=== PATIENT | female | born 1950 | race Caucasian/White ===

== ENCOUNTER 2017-02-27 10:34 | Emergency (ER) | payer MEDICARE, BC ==
--- NOTE | 2017-02-27 13:07 | RAD ---
INDICATION: Food stuck. COMPARISON: There are no prior studies available for comparison. TECHNIQUE: AP and lateral images of the soft tissue of the neck were obtained. FINDINGS: The epiglottis and aryepiglottic folds appear to be within normal limits. The retropharyngeal soft tissues appear normal. The airway appears patent. No radiopaque foreign body is seen. IMPRESSION: NO RADIOPAQUE FOREIGN BODY IS SEEN.
--- NOTE | 2017-02-27 13:08 | RAD ---
INDICATION: Foot stuck in esophagus. COMPARISON: There are no prior studies available for comparison. TECHNIQUE: Dual-energy PA and lateral views of the chest were obtained. FINDINGS: The heart is within normal limits in size. Mediastinal and hilar contours appear within normal limits. The lungs are hyperinflated and clear. No pleural effusion is seen. No radiopaque foreign body is seen. IMPRESSION: FINDINGS SUGGESTIVE OF COPD, NO EVIDENCE FOR ACUTE FINDING.
[2017-02-27] MEDS ORDERED: Glucagon* 1 MG VIAL IV ONE (14:15)
[2017-02-27 14:27] VITALS: BP 162/74
[2017-02-27] MEDS ORDERED: Midazolam* 1 MG/ML 10 ML VIAL (10 MG) ONE (16:13)
[2017-02-27] MEDS ORDERED: Meperidine SYRINGE* 50 MG/ML ONE (16:13)
--- NOTE | 2017-02-27 22:39 | ED ---
Duc Roberson Alok, scribed for Wing Perez MD on 02/27/17 at 1431 . Throat Pain/Nasal Congestion - HPI Summary HPI Summary: 66F presents to the ED for a foreign body she feels in her esophagus for the last 2 days. Pt states that 2 days ago she was eating chicken when she felt a big that was too big not go down her throat fully. Pt states she tried to wash it down with fluid with no improvement. Pt is able to drink but hasn't tried eating since 2 days ago besides a small amount of salad she mashed thorough and ingesting with water successfully. Pt states this has never happened before. Pt denies scratching in her throat and states she chicken did not contain cartilage. Pt denies SOB. - History of Current Complaint Chief Complaint: EDForeignBodyEsophag Time Seen by Provider: 02/27/17 14:12 Hx Obtained From: Patient Onset/Duration: Lasting Days, Still Present Severity: Moderate - Allergies/Home Medications Allergies/Adverse Reactions: Allergies Allergy/AdvReac Type Severity Reaction Status Date / Time No Known Allergies Allergy Verified 02/27/17 14:49 Home Medications: Home Medications NK [No Home Medications Reported] 02/27/17 [History Confirmed 02/27/17] PMH/Surg Hx/FS Hx/Imm Hx Cardiovascular History: Reports: Hx Hypertension - CONTROL WITH MEDICATION History: Reports: Hx Kidney Stones - 8-9 YEARS AGO WITH LITHOTRIPSY Sensory History: Reports: Hx Cataracts - BILATERAL, Hx Contacts or Glasses - GLASSES Denies: Hx Hearing Aid Opthamlomology History: Reports: Hx Cataracts - BILATERAL, Hx Contacts or Glasses - GLASSES - Surgical History Surgery Procedure, Year, and Place: 1984 CSE[place], [facility] [place]. 1970 FACIAL LACERATION REPAIRED SURGICALLY, [facility] [place] Hx Anesthesia Reactions: No Infectious Disease History: Reports: Hx Hepatitis - HEPATITIS C-UNDER CONTROL Denies: Traveled Outside the [place] in Last 30 Days - Family History Known Family History: Positive: Other - No- Malignant hypothermia - Social History Occupation: Employed Full-time Alcohol Use: Rare Substance Use Type: Reports: None Smoking Status (MU): Former Smoker Type: Cigarettes Amount Used/How Often: 1-2 PPD Length of Time of Smoking/Using Tobacco: 37 YEARS Have You Smoked in the Last Year: No Review of Systems Negative: Fever Positive: Other - foreign body esophagus. Negative: Sore Throat Negative: Shortness Of Breath All Other Systems Reviewed And Are Negative: Yes Physical Exam Triage Information Reviewed: Yes Vital Signs On Initial Exam: Initial Vitals Temp Pulse Resp BP Pulse Ox 97.8 F 83 18 166/75 98 02/27/17 10:36 02/27/17 10:36 02/27/17 10:36 02/27/17 10:36 02/27/17 10:36 Vital Signs Reviewed: Yes Appearance: Positive: Well-Appearing, No Pain Distress Skin: Positive: Warm, Skin Color Reflects Adequate Perfusion, Dry Head/Face: Positive: Normal Head/Face Inspection Eyes: Positive: Normal ENT: Positive: Normal ENT inspection Neck: Positive: Supple, Nontender Respiratory/Lung Sounds: Positive: Clear to Auscultation, Breath Sounds Present Cardiovascular: Positive: RRR Abdomen Description: Positive: Nontender, Soft Bowel Sounds: Positive: Present Musculoskeletal: Positive: Normal Neurological: Positive: Normal Psychiatric: Positive: Normal, Affect/Mood Appropriate Diagnostics - Vital Signs Vital Signs Temp Pulse Resp BP Pulse Ox 02/27/17 14:25 83 100 02/27/17 12:29 98.2 F 76 15 187/86 98 02/27/17 10:36 97.8 F 83 18 166/75 98 - Laboratory Lab Statement: Any lab studies that have been ordered have been reviewed, and results considered in the medical decision making process. - Radiology CXR Xray Interpretation: Positive (See Comments) - IMPRESSION: FINDINGS SUGGESTIVE OF COPD, NO EVIDENCE FOR ACUTE FINDING. Radiology Interpretation Completed By: Radiologist Soft Tissue Neck XRAY Xray Interpretation: Positive (See Comments) - IMPRESSION: NO RADIOPAQUE FOREIGN BODY IS SEEN. Radiology Interpretation Completed By: Radiologist EENT Course/Dx - Course Course Of Treatment: Dr. Morris came and evaluated her for her feeling of having a F.B. - Diagnoses Provider Diagnoses: Esophageal foreign body - Provider Notifications Discussed Care of Patient with: Dr. Pena (Internal medicine) @ 9211 - discussed pt hx and condition. Dr. Pena will examine pt. Dr. Pena ( Internal medicine) @ 4091 - Dr. Pena reports no foreign body present Discharge - Discharge Plan Condition: Stable Disposition: HOME Patient Education Materials: Dysphagia (ED) Referrals: Tapan Perry MD [Primary Care Provider] - The documentation as recorded by the scribe, Duc,Evan accurately reflects the service I personally performed and the decisions made by me, Wing Perez MD.
--- NOTE | 2017-02-27 23:15 | CONS ---
GASTROENTEROLOGY CONSULT: DATE: - EMERGENCY DEPT CONSULTING PHYSICIANS: Konrad Perez; Tapan Perry, [place]. REASON FOR CONSULT: Pressure feeling in the chest after eating chicken, evening of 02/25/17. 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 She was eating chicken and knew there was a piece that was too big. It just hung up and she has been unable to bring it up and it has not gone down. She has been able to handle her own saliva and has been able to drink fluids. She still has that pressure sensation. She states she has never had anything like this before and even when questioned about "near misses," denies any trouble. She will have some acid indigestion and takes Tums twice a year. She is not on any aspirin, Advil, or Aleve. Her appetite is good, but she has been trying to lose some weight on account of sleep apnea. PAST MEDICAL HISTORY: 1. Obesity. 2. Heart failure - she was referred by Dr Perry to a information systems security specialist at [facility] , "Dr. Lerma", who she says ordered a sleep study and some other things. She sticks with the diagnosis of heart failure even though she is not on any prescriptions. 3. History of renal stones - shock wave lithotripsy, [facility] in [place], 2004. 4. . SOCIAL HISTORY: She is from [facility], went to high school there, and explains her not being in the hospital medical record here as being because "I have always been healthy." Detailed review, she has gotten her care at [facility], and through the [facility] system. She was treated by Dr. Nash for hepatitis C and had a negative post therapy viral load in 2012. REVIEW OF SYSTEMS: No history of [place], syncope, hemoptysis, TB, hepatitis, jaundice, surgery on the luminal GI tract. No history of thyroid or diabetes problems. PHYSICAL EXAM: She is a generally healthy-appearing, moderately overweight, late middle-aged woman, in no distress. HEENT exam is unremarkable. She has no adenopathy. Her lungs are clear and heart sounds are regular and normal. Her abdomen is soft and nontender. Extremities are unremarkable with no edema. Neurologic is nonfocal with normal cranial nerves, mentation, orientation, and use of all 4 extremities. IMPRESSION: This 66-year-old woman has persisting feeling of something lodged in her esophagus. Fluid is going down, but in this scenario, 95% of the time, there is still a foreign body stuck. Upper endoscopy is indicated. Her information systems security specialist office will be contacted though given her stable presentation and her saying that she was prescribed no medications seems evident that she is qualified to undergo moderate sedation. She knows there is a 5% chance of unexpected outcomes, which might include perforation, infection, and admission. Addendum: phone report from the information systems security specialist's office (pre EGD) is that she is being followed for diastolic dysfunction not overt heart failure [id number]/[facility] #: [id number] [facility]
--- NOTE | 2017-02-28 08:49 | PRO ---
DATE: 02/27/17 - EMERGENCY DEPT. REFERRING PHYSICIAN: Dr. Tapan Perry* PROCEDURE: Upper gastrointestinal endoscopy and gastric greater curvature biopsy for CLOtest. INDICATION: This 66-year-old woman has a foreign body sensation in her chest ever since Friday evening, about 44 hours ago. Just in the last hour, she says things have felt a little better. Nonetheless, she still has a sense of pressure. She is not salivating. She says this has never happened before. History obtained from her son, who has come to be her front load trash truck driver. In fact, his brother has a history of recurring foreign body obstructions and requires repeated dilations done in [place]. The patient did not reveal this. Informed consent was obtained with an opportunity for questions, special concerns, and a travel discussion. A 5% chance of admission was described. ENDOSCOPIST: Dr. Morris. MEDICATIONS: Midazolam 10, meperidine 100. FINDINGS: She is a substantially overweight, but generally healthy-appearing older woman in no distress. Her abdomen is soft and nontender. Her lungs are clear, and heart tones are normal. EGD: Larynx - limited symmetric views obtained. Esophagus - easily entered, and the mucosa was normal from 16 down to 39. There are no erosions, scars or rings. There is no sign of a mucosal hypertrophy or abnormality, and no sign of EE. Stomach - generally normal mucosa with no hiatal hernia. There is mild diffuse erythema in the stomach, but no erosions. There are a couple of dozen wispy bleeding points in the gastric fundus. There are a lesser amount extending down into the body. The antrum is normal. Duodenum - the pylorus appears normal and the bulb has some scattered mild exudates consistent with duodenitis and more typical of a bacterial effect than drug effect. The second through fourth portions of the duodenum were normal. IMPRESSION: 1. Duodenitis and gastritis - CLOtest pending. 2. History of esophageal foreign body - a single event which occurred while the patient was eating at home alone, and that is an unusual history. No signs of an acid peptic disorder are seen, and optimal eating patterns were described to the patient before the procedure and to the son after the procedure. She will follow up in a month. Addendum: Clotest positive [id number]/[facility] #: [id number] [facility]
--- NOTE | 2017-03-01 10:17 | PN ---
Progress Note - Progress Note Note: Patient clotest can back positive. called patient and told to follow up with Dr Morris office since he ordered the test. Gave contact information for the office.
== END 2017-02-27 19:14 | disposition home or self-care (01) ==
LOC: ED 10:34
DX: T18.128A Food in esophagus causing other injury, initial encounter (principal); X58.XXXA Exposure to other specified factors, initial encounter; Y93.9 Activity, unspecified; Y92.9 Unspecified place or not applicable; Z87.891 Personal history of nicotine dependence
CPT/HCPCS: 70360; 71020; 87077; 99284; J1610; J2250